=== PATIENT | male | born 1930 | race Caucasian/White ===

== ENCOUNTER → 2016-10-14 | Outpatient (CLI) | payer OTHER | LOC: MMPC 11:11 | PROVIDERS: ATTEND Internal Medicine | DX: I50.31 Acute diastolic (congestive) heart failure (principal); E11.49 Type 2 diabetes mellitus with other diabetic neurological complication; H91.93 Unspecified hearing loss, bilateral | CPT/HCPCS: 99214; G0463 ==

== ENCOUNTER → 2016-12-09 | Outpatient (CLI) | payer OTHER ==
[2016-12-09 14:44] LABS: BUN/CREATININE RATIO 21.11 (6-20); CALCIUM 9.3 mg/dL (8.7-10.7); CHOL/HDL RATIO 3.31 RATIO (0-4.0); LDL CHOLESTEROL,CALCULATED 87.8 mg/dL; SERUM ALBUMIN 3.8 g/dL (3.5-4.8)
[2016-12-09 14:48] LABS: HEMOGLOBIN A1C 7.05 % (4.2-6.0)
== END ==
LOC: LAB 08:17
PROVIDERS: ATTEND Internal Medicine
DX: I50.32 Chronic diastolic (congestive) heart failure (principal); E11.9 Type 2 diabetes mellitus without complications; E78.5 Hyperlipidemia, unspecified
CPT/HCPCS: 80053; 80061; 82043; 82550; 83036; 83880

== ENCOUNTER → 2016-12-12 | Outpatient (CLI) | payer OTHER | LOC: MMPC 11:11 | PROVIDERS: ATTEND Internal Medicine | DX: E11.49 Type 2 diabetes mellitus with other diabetic neurological complication (principal); H91.93 Unspecified hearing loss, bilateral; M48.06 Spinal stenosis, lumbar region; I51.9 Heart disease, unspecified; E78.5 Hyperlipidemia, unspecified ==